=== PATIENT | female | born 1995 ===

== ENCOUNTER 2025-04-13 08:28 | Outpatient (AMB) | payer MEDICAID, SELFPAY ==
--- NOTE | 2025-04-13 08:32 | OBCLNT_ITS ---
Vital Signs 04/13/25 08:42 Height 1.57 m Height Method Stated Weight 87.713 kg Weight Measurement Method Standing Scale BMI 35.4 BP 112/73 Blood Pressure Source Automatic Cuff Blood Pressure Location Right Upper Arm Position Sitting Respiration 17 Pulse 88 Pulse Source Monitor Temp 97.6 F Temp Source Temporal Artery Scan Pulse Oximetry (%) 98 Oxygen Delivery Method Room Air Allergies/Home Meds Allergies & Medications Allergies No Known Allergies Allergy (Verified 04/13/25 08:44) Medication Reconciliation prenat.vits,purvi,[id number] ( Vitamin tablet) 1 tab PO DAILY 08/29/17 [History Confirmed 04/13/25] Intake Visit Data Collection New Patient or Established: New Patient (never been to [facility]) Reason for Visit:: OBI Seen by Clinical Staff ONLY (RN/MA): No Technology Director Required: No Do You Feel Safe at Home: Yes Authorities Contacted: N/A PCP or OBGYN visit in last 3 months: No Hx Now: Yes Are you currently on any form of Control: No Last menstrual period: 01/04/25 Pain Present Currently: Yes Pain Location: Abdomen Pain Scale Used: Celaya-Eid/Numerical Pain scale:: 3 Smoking Status Smoking Status: Never smoker Immunizations Flu Vaccine in the Last 12 Months: Yes Flu Vaccine Exclusion Criteria: Already Received Questionnaires Covid-19 Vaccine Questionnaire Has patient been vacinated for Covid-19 Have you been vacinated for Covid-19: Yes PHQ-9 PHQ-2 Over the last 2 weeks, how often have you been bothered by any of the following problems? 1. Little interest or pleasure in doing things: not at all 2. Feeling down, depressed, or hopeless: not at all Total score: 0 PHQ-9 3. Trouble falling or staying asleep, or sleeping too much: Not at all 4. Feeling tired or having little energy: Not at all 5. Poor appetite or overeating: Not at all 6. Feeling bad about yourself - or that you are a failure or have let yourself or your family down: Not at all 7. Trouble concentrating on things, such as reading the newspaper or watching television: Not at all 8. Moving or speaking so slowly that other people could have noticed? - Or the opposite - being so fidgety or restless that you have been moving around a lot more than usual: not at all 9. Thoughts that you would be better off or of hurting yourself in some way: Not at all Total score: 0 If you checked off any problems, how difficult have these problems made it for you to do your work, take care of things at home, or get along with other people?: not difficult at all Source: Developed by Drs. Dilan Cruz, Martina Moreland, Dung Kate and colleagues, with an educational sylvia from [employer]. Depression screen completed yes Social History Living Situation History Marital Status: Single Lives With: Family Housing: Apartment Tobacco History Smoking Status: Never smoker Second Hand Smoke Exposure: No Alcohol History Alcohol Intake: Never Domestic Abuse History Do You Feel Safe at Home: Yes History of Present Illness HPI Narrative Chief Complaint First visit for John Aparicio is a female presenting for her first visit for her third . Her last menstrual period was January 08 with a calculated due date of September 25, 2025. She has a history of one vaginal delivery followed by one section due to prolonged rupture of membranes for over 24 hours and failure to progress beyond 3 centimeters despite induction attempts, which resulted in an emergency section performed by Dr. Muhammad. The patient had verification done at [facility] where she saw Al as her provider. She initially had suspicion of but was not certain until the test came back positive. She experienced some spotting after the initial visit, prompting an ultrasound at [facility]. Two HCG levels were drawn a few days apart and showed normal rising patterns, and she was reassured that the spotting was normal. She has had one ultrasound at [facility] that confirmed dates were appropriate. The patient is currently taking vitamins and reports no other medical issues. She expressed feeling safer seeking care due to her previous section experience and wanted more experienced care for this . She is currently employed and was on her way to work at the time of this visit. Surgical History: - section for second due to prolonged rupture of membranes (o delmar 24 hours) and failure to progress beyond 3 cm dilation despite induction attempts, performed by Dr. Rivera as emergency procedure Obstetric History: - GTPAL: G3 T1 L2 - Current : Last menstrual period January 08, 2025, estimated due date October 16, 2025 - Second : Delivered via emergency section due to prolonged rupture of membranes (over 24 hours) and failure to progress beyond 3 cm despite induction attempts - First : Delivered via spontaneous vaginal delivery Medications: - vitamins (gummy form) Social History: - Works at [employer]: Past Medical History Past Medical History: No Hx Neurological Disorders, No Hx Breast Cancer, No Hx Cardiac Disorders, No Hx Blood Disorders, No Hx Gastrointestinal Disorders, No Hx Renal Disease, No Hx Diabetes Mellitus Type 1 and No Hx Diabetes Mellitus Type 2 OB Initial Visit OB Flowsheet OB Flowsheet Initial Weight: Not Recorded Date -?-?-?-?-?-?-?-?-?-?-?-?- EGA Weight BP Alb Glu CTX Pres Fundal ht FHR Mov Dilation Station Effacement Hx Notes Visit Note 04/13/25 -?-?-?-?-?-?-?-?-?-?-?-?- 13w 4d 87.713 kg 112/73 - John Aparicio is here for her first visit for her third . - Her last menstrual period was December h with a calculated due date of September 25, 2025. - She had verification done at [facility] where she also had an initial ultrasound that matched her dates. - She experienced some spotting after th e test but was told this was normal after having two HCG levels drawn a few days apart that were rising appropriately. - She is currently taking vitam ins (gummy form). - She has had two previous pregnancies: - First delivery was vaginal - Second delivery was section due to prolonged rupture of membranes for over 24 hours and failure to progress past 3 cm despite induction attempts - She denies any other medical issues. - She has not had any labs draw n yet for this . - She switched providers from her previo us clinic nurse (Dr. Muhammad) to seek more experienced care given her previous complicated section. - Order initial panel blood work - Order genetic testing (NIPD) - Schedule anatomy scan ultrasound at 18 -20 weeks with specialist in [place] - Consider option after anatomy ult rasound results, with potential referral to [facility] in [place] - Follow up for routine care Menstrual History Menstrual reliability: approximate (month known) Flow: normal Menstrual regularity: regular Monthly: Yes Age at menarche: 14 On control pills at conception: No OB History : 4 Para: 2 Hx Total # of Abortions (Spontaneous & Elective): 1 # of Living Children: 2 Delivery History 1st : Child's name: AXEL GRANT date: 08/30/17 sex: female Gestational age at delivery (weeks): 40 Delivery type: vaginal weight (lbs): 2721.554 g History of depression before or after : No 2nd : Child's name: YOANA GRANT JR date: 01/21/23 sex: male Gestational age at delivery (weeks): 40 Delivery type: weight (lbs): 3175.147 g History of depression before or after : No Infection History & Risk Evaluation History of STDs: chlamydia Patient or partner has history of Genital Herpes: No Varicella/chicken pox status: unknown Genetic Screening & History Genetic Screening/Teratology Counseling - Includes patient, baby's father, or anyone in either family with: 1. Patient's age 35 years or older as of estimated date of delivery: No 2. Thalassemia (Bengali, Cape Verdean, Mediterranean, or Background); MCV less than 80: No 3. Neural Tube Defect (Meningomyelocele, Spina Bifida, or Anencephaly): No 4. Congenital Heart Defect: No 5. Down Syndrome: Yes 6. Fransisco-Sachs (Ashkenazi Shinto, Cajun, Turkish [place]): No 7. Jarred Disease (Ashkenazi Shinto): No 8. Familial Dysautonomia (Ashkenazi Shinto): No 9. Sickle Cell Disease or Trait (): No 10. Hemophilia or other blood disorders: No 11. Muscular Dystrophy: No 12. Cystic Fibrosis: No 13. Hall's Chorea: No 14. Mental Retardation/Autism: Yes 15. Other inherited genetic or chromosomal disorder: No 16. Maternal Metabolic Disorder (EG,TYPE 1 Diabetes, PKU): No 17. Patient or baby's father had a child with defects not listed above: No 18. Recurrent loss or a stillbirth: No 19. Medications (including supplements, vitamins, herbs or otc drugs)/illicit/recreational drugs/alcohol since last menstrual period: No 20. Any other: No Infection History 1. Live with someone with TB or exposed to TB: No Other (see comments) Source: [employer] Exam General General Appearance: alert, in no apparent distress and healthy appearing Head Head exam: atraumatic Neck Neck exam: Present normal inspection and trachea midline Chest Chest inspection: Present normal inspection and symmetric chest wall rise External exam: Present normal external exam; Absent tenderness Neuro Neurological exam: Present oriented X3 Psych Psychiatric exam: Present normal affect and normal mood Office Procedures OBC Clinic LOC & Office Proc's Nursing/Assessment Patient Status: Initial/New Patient OB Clinic Nursing Assessment: Medication Reconciliation, Update PMH in EMR and Vital Signs OB Clinic Coordination of Care: Complex Care and Chronic Disease 1-5, Education Complex Pt/Fam, Consent,records obtained, informed consent, Lab and Imaging orders and Staff clarify orders Special Needs: Heart tones New Patient Charge New Patient Point Assignment: [id number] New Patient Point 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 Previous obstetric history significant for first vaginal delivery and second section due to prolonged rupture of membranes over 24 hours with failed induction. Patient had positive test and serial HCGs that daryl appropriately. Initial ultrasound at [facility] confirmed dates. Current ultrasound shows heart rate of 134 bpm with normal appearance of fetus and placenta. Patient experienced some spotting which was determined to be normal. Plan: - Order initial laboratory panel - Order genetic testing (NIPT) - Schedule anatomy ultrasound at 18-20 weeks with specialist in [place] - Anatomy scan will include evaluation of placenta given history of section and increased risk of placenta previa - Continue vitamins (gummy formulation) - Consider option after anatomy ultrasound results, with delivery at [facility] in [place] if appropriate - Obtain records from [facility]
[2025-04-13 08:42] VITALS: BP 112/73; PULSE 88; RESP 17; TEMP 36.4; O2SAT 98; BMI 35.4
== END 2025-04-13 09:47 | disposition home or self-care (01) ==
PROVIDERS: Supervising Provider Obstetrics & Gynecology; Visit Provider Obstetrics & Gynecology
DX: O09.291 Supervision of pregnancy with other poor reproductive or obstetric history, first trimester (principal); O34.211 Maternal care for low transverse scar from previous cesarean delivery; Z3A.13 13 weeks gestation of pregnancy
CPT/HCPCS: 99204; G0463

== ENCOUNTER 2025-05-25 08:29 | Outpatient (AMB) | payer MEDICAID, SELFPAY ==
[2025-05-25 08:35] VITALS: BP 116/78; PULSE 100; RESP 18; TEMP 36.6; O2SAT 98; BMI 36.3
--- NOTE | 2025-05-25 08:35 | OBCLNT_ITS ---
Vital Signs 05/25/25 08:35 Height 1.57 m Height Method Stated Weight 89.528 kg Weight Measurement Method Standing Scale BMI 36.3 BP 116/78 Blood Pressure Source Automatic Cuff Blood Pressure Location Left Upper Arm Position Sitting Respiration 18 Pulse 100 Pulse Source Monitor Temp 97.8 F Temp Source Oral Pulse Oximetry (%) 98 Oxygen Delivery Method Room Air Allergies/Home Meds Allergies & Medications Allergies No Known Allergies Allergy (Verified 05/25/25 08:35) Medication Reconciliation prenat.vits,purvi,[id number] ( Vitamin tablet) 1 tab PO DAILY 08/29/17 [History Confirmed 05/25/25] sumatriptan succinate 50 mg tablet (Imitrex) 50 mg PO .COMPLEX 30 days #30 tabs 05/25/25 [Rx] Immunizations Immunizations Flu Vaccine in the Last 12 Months: Yes Flu Vaccine Exclusion Criteria: Already Received Care OB Visit Log OB Flowsheet Initial Weight: Not Recorded Date -?-?-?-?-?-?-?-?-?-?-?-?- EGA Weight BP Alb Glu CTX Pres Fundal ht FHR Mov Dilation Station Effacement Hx Notes Visit Note 04/13/25 -?-?-?-?-?-?-?-?-?-?-?-?- 13w 4d 87.713 kg 112/73 - John Aparicio is here for her first visit for her third . - Her last menstrual period was January 08t h with a calculated due date of September 25, 2025. - She had verification done at [facility] where she also had an initial ultrasound that matched her dates. - She experienced some spotting after th e test but was told this was normal after having two HCG levels drawn a few days apart that were rising appropriately. - She is currently taking vitam ins (gummy form). - She has had two previous pregnancies: - First delivery was vaginal - Second delivery was section due to prolonged rupture of membranes for over 24 hours and failure to progress past 3 cm despite induction attempts - She denies any other medical issues. - She has not had any labs draw n yet for this . - She switched providers from her previo us clipper automatic (Dr. Muhammad) to seek more experienced care given her previous complicated section. - Order initial panel blood work - Order genetic testing (NIPD) - Schedule anatomy scan ultrasound at 18 -20 weeks with specialist in [place] - Consider option after anatomy ult rasound results, with potential referral to [facility] in [place] - Follow up for routine care 05/25/25 -?-?-?-?-?-?-?-?-?-?-?-?- 19w 4d 89.528 kg 116/78 absent unstable 155 - She reports experiencing sharp pain in the lower abdomen that occurs with certain movements or rotational activities. - Pain is described as really short and localized to the lower abdominal area. - Patient has been experiencing dizzines s and lightheadedness. - She reports having migraines during pr egnancy. - Patient experiences back pain. - She has a history of frequent urinary tract infections, both during and prior to . - Denies current urinary symptoms such as burning or increased frequency. - Patient called approximately 2 weeks a go regarding scheduling her anatomy scan ultrasound, which was not properly scheduled. - She denies fever or chills. - Patient denies normally getting migraines when not . - Order CBC, CMP, and urine culture to evaluate dizziness and rule out early-onset preeclampsia - Prescribe Imitrex for migraines - take one dose, if no relief after one hour take second dose - Schedule urgent anatomy scan ultrasoun d at 19 weeks 4 days gestation - Complete [place] paperwork for intermitte nt leave (once per week, up to 3-4 hours per episode) - Patient can present to labor and krista malone for evaluation once 20 weeks gestation is reached CELESTE Calculator Estimated Delivery Date Method Current WG Current Estimate 10/15/25 LMP (Certain) 23w 3d Notes Visit Date: 04/13/25 Last Updated by: Adriel Tripp MD - test: Positive - Serial HCG levels: Rising appropriately (performed a few days apart) - Obstetric ultrasound: heart rate 134 bpm (normal), placenta appears normal, anatomy visualized including head and legs, overall normal appearance - Previous ultrasound at [facility]: Dates consistent with last menstrual period Office Procedures OBC Clinic LOC & Office Proc's Nursing/Assessment Patient Status: Established Patient OB Clinic Nursing Assessment: Medication Reconciliation, Update PMH in EMR and Vital Signs OB Clinic Coordination of Care: Complex Care and Chronic Disease 1-5, Consent,records obtained, informed consent, Education Simp Pt/Fam, 1 Ins Authorization, Lab and Imaging orders, Results/Orders obtained and Staff clarify orders Special Needs: Heart tones Established Patient Charge Established Patient Point Assignment: 150 Established Patient Point Charge: EP Level 4 (120-155) Assessment & Plan Diagnosis / Problem List (1) Migraines: Status: Acute (2) Supervision of high risk , unspecified, first trimester: Status: Acute (3) Maternal care for low transverse scar from previous delivery: Status: Acute Plan Problem List - Round ligament pain - Migraines - Dizziness - Recurrent urinary tract infections - Back pain Assessment 19-week 4-day patient presenting with round ligament pain characterized by sharp pain with rotational movements, which is consistent with normal -related ligament stretching. Patient reports dizziness and migraines, raising concern for possible early-onset preeclampsia that requires laboratory evaluation including CBC, CMP, and urine culture to assess liver, kidney, and electrolyte function. Patient has a history of frequent urinary tract infections both during and prior, with back pain symptoms, though no current UTI symptoms such as burning or frequency are reported. Plan - Order CBC, CMP, and urine culture to evaluate dizziness and rule out early- onset preeclampsia - Prescribe Imitrex for migraines - take one dose, if no relief after one hour take second dose - Schedule urgent anatomy scan ultrasound at 19 weeks 4 days gestation - Complete [facility] paperwork for intermittent leave (once per week, up to 3-4 hours per episode) - Patient can present to labor and delivery for evaluation once 20 weeks gestation is reached
== END 2025-05-25 09:59 | disposition home or self-care (01) ==
PROVIDERS: Supervising Provider Obstetrics & Gynecology; Visit Provider Obstetrics & Gynecology
DX: O09.292 Supervision of pregnancy with other poor reproductive or obstetric history, second trimester (principal); O34.211 Maternal care for low transverse scar from previous cesarean delivery; O09.892 Supervision of other high risk pregnancies, second trimester; O99.352 Diseases of the nervous system complicating pregnancy, second trimester; G43.909 Migraine, unspecified, not intractable, without status migrainosus; R10.20 Pelvic and perineal pain unspecified side; O99.891 Other specified diseases and conditions complicating pregnancy; Z3A.19 19 weeks gestation of pregnancy; Z87.440 Personal history of urinary (tract) infections
CPT/HCPCS: 99214; G0463

== ENCOUNTER 2025-06-22 15:04 | Outpatient (AMB) | payer MEDICAID, SELFPAY ==
[2025-06-22 15:07] VITALS: BP 126/77; PULSE 97; RESP 18; TEMP 36.4; O2SAT 98; BMI 36.2
--- NOTE | 2025-06-22 15:07 | OBCLNT_ITS ---
Vital Signs 06/22/25 15:07 Height 1.57 m Height Method Stated Weight 89.358 kg Weight Measurement Method Standing Scale BMI 36.2 BP 126/77 Blood Pressure Source Automatic Cuff Blood Pressure Location Left Upper Arm Position Sitting Respiration 18 Pulse 97 Pulse Source Monitor Temp 97.5 F Temp Source Oral Pulse Oximetry (%) 98 Oxygen Delivery Method Room Air Allergies/Home Meds Allergies & Medications Allergies No Known Allergies Allergy (Verified 06/22/25 15:11) Medication Reconciliation prenat.vits,purvi,[id number] ( Vitamin tablet) 1 tab PO DAILY 08/29/17 [History Confirmed 06/22/25] sumatriptan succinate 50 mg tablet (Imitrex) 50 mg PO .COMPLEX 30 days #30 tabs 05/25/25 [Rx Confirmed 06/22/25] Immunizations Immunizations Flu Vaccine in the Last 12 Months: No Flu Vaccine Exclusion Criteria: Refused by Patient Care OB Visit Log OB Flowsheet Initial Weight: Not Recorded Date -?-?-?-?-?-?-?-?-?-?-?-?- EGA Weight BP Alb Glu CTX Pres Fundal ht FHR Mov Dilation Station Ef facement Hx Notes Visit Note 04/13/25 -?-?-?-?-?-?-?-?-?-?-?-?- 13w 4d 87.713 kg 112/73 - John Aparicio is here for her first visit for her third . - Her last menstrual period was January 08t h with a calculated due date of September 25, 2025. - She had verification done at [facility] where she also had an initial ultrasound that matched her dates. - She experienced some spotting after th e test but was told this was normal after having two HCG levels drawn a few days apart that were rising appropriately. - She is currently taking vitam ins (gummy form). - She has had two previous pregnancies: - First delivery was vaginal - Second delivery was section due to prolonged rupture of membranes for over 24 hours and failure to progress past 3 cm despite induction attempts - She denies any other medical issues. - She has not had any labs draw n yet for this . - She switched providers from her previo us [facility] [employer] [facility] (Dr. Muhammad) to seek more experienced care given her previous complicated section. - Order initial panel blood work - Order genetic testing (NIPD) - Schedule anatomy scan ultrasound at 18 -20 weeks with specialist in [place] - Consider option after anatomy ult rasound results, with potential referral to [facility] in [place] - Follow up for routine care 05/25/25 -?-?-?-?-?-?-?-?-?-?-?-?- 19w 4d 89.528 kg 116/78 absent unstable 155 - She reports experiencing sharp pain in the lower abdomen that occurs with certain movements or rotational activities. - Pain is described as really short and localized to the lower abdominal area. - Patient has been experiencing dizzines s and lightheadedness. - She reports having migraines during pr egnancy. - Patient experiences back pain. - She has a history of frequent urinary tract infections, both during and prior to . - Denies current urinary symptoms such as burning or increased frequency. - Patient called approximately 2 weeks a go regarding scheduling her anatomy scan ultrasound, which was not properly scheduled. - She denies fever or chills. - Patient denies normally getting migraines when not . - Order CBC, CMP, and urine culture to evaluate dizziness and rule out early-onset preeclampsia - Prescribe Imitrex for migraines - take one dose, if no relief after one hour take second dose - Schedule urgent anatomy scan ultrasoun d at 19 weeks 4 days gestation - Complete [facility] paperwork for intermitte nt leave (once per week, up to 3-4 hours per episode) - Patient can present to jimbo and krista malone for evaluation once 20 weeks gestation is reached 06/22/25 -?-?-?-?-?-?-?-?-?-?-?-?- 23w 4d 89.358 kg 126/77 absent unknown 145 active - She reports the baby is active and moving all the time. - She denies contractions or problems. - She has not yet had her scheduled ultr asound in [place] due to a waiting list, with the facility indicating they will call her in about 1-2 weeks to schedule. - She denies history of diabetes. - Glucose tolerance test (1-hour) to be completed within the next month on empty stomach - Ultrasound appointment pending - patie nt on waiting list, expected to be scheduled within 1-2 weeks - Follow-up appointment scheduled for Immanuel ramirez at 3 PM (4 weeks) - Call if any concerns arise CELESTE Calculator Estimated Delivery Date Method Current WG Current Estimate 10/15/25 LMP (Certain) 23w 4d Notes Visit Date: 06/22/25 Last Updated by: Adriel Tripp MD - Date: June 01, 2025 - CBC: Hemoglobin 12.3 g/dL, Platelets normal - Glucose: 75 mg/dL - Electrolytes: Normal - Liver enzymes: Normal - Urine culture: Negative Visit Date: 04/13/25 Last Updated by: Adriel Tripp MD - test: Positive - Serial HCG levels: Rising appropriately (performed a few days apart) - Obstetric ultrasound: heart rate 134 bpm (normal), placenta appears normal, anatomy visualized including head and legs, overall normal appearance - Previous ultrasound at [facility]: Dates consistent with last menstrual period Office Procedures [facility] LOC & Office Proc's Nursing/Assessment Patient Status: Established Patient OB Clinic Nursing Assessment: Medication Reconciliation, Update PMH in EMR and Vital Signs OB Clinic Coordination of Care: Complex Care and Chronic Disease 1-5, Consent,records obtained, informed consent, Education Simp Pt/Fam, 1 Ins Authorization, Lab and Imaging orders, Results/Orders obtained and Staff clarify orders Special Needs: Heart tones Established Patient Charge Established Patient Point Assignment: 150 Established Patient Point Charge: EP Level 4 (120-155) Assessment & Plan Diagnosis / Problem List (1) Maternal care for low transverse scar from previous delivery: Status: Acute Plan Problem List - at 23 weeks and 4 days - Recurrent urinary tract infections - Migraines during - Prior section Assessment 23-week 4-day 2 para 2 with normal heart rate of 147 bpm and active movement. Patient reports no contractions or concerning symptoms. Recent laboratory results from June 01 show hemoglobin 12.3 g/dL, normal platelets, glucose 75 mg/dL, normal electrolytes and liver enzymes with no signs of preeclampsia, and negative urine culture. Patient has history of recurrent UTIs, -related migraines, and prior section. Awaiting scheduled anatomy ultrasound due to facility scheduling delays. Plan - Glucose tolerance test (1-hour) to be completed within the next month on empty stomach - Ultrasound appointment pending - patient on waiting list, expected to be scheduled within 1-2 weeks - Follow-up appointment scheduled for (4 weeks) - Call if any concerns arise 1. Progress Reviewed gestational age (23 weeks 4 days), growth, and heart rate (147 bpm - normal). Planned frequent visits (every 4 weeks currently). 2. Instructed patient to monitor movements and report decreases immediately. 3. Testing Counseled on routine third-trimester labs per guidelines (glucose tolerance test ordered). Discussed potential need for ultrasound or monitoring based on risk factors (ultrasound pending with specialist). 4. Preeclampsia Precaution Educated on preeclampsia signs: severe headache, vision changes, right upper quadrant pain, sudden swelling. Advised urgent reporting of symptoms and discussed blood pressure monitoring if high risk. 5. Labor Precautions Reviewed labor signs: regular contractions, pelvic pressure, back pain, bleeding, or fluid leakage. Instructed to seek immediate care for these symptoms. 6. Lifestyle and Delivery Preparation Reinforced vitamins, nutrition, and safe activity. Discussed plan, pain management, and . Advised on labor preparation (e.g., hospital bag) and expectations. 7. Psychosocial Support Assessed emotional well-being and offered resources for mental health or parenting support.
== END 2025-06-22 15:19 | disposition home or self-care (01) ==
LOC: HODSOBC 15:04
PROVIDERS: Supervising Provider Obstetrics & Gynecology; Visit Provider Obstetrics & Gynecology
DX: O09.293 Supervision of pregnancy with other poor reproductive or obstetric history, third trimester (principal); O34.211 Maternal care for low transverse scar from previous cesarean delivery; O09.893 Supervision of other high risk pregnancies, third trimester; G43.909 Migraine, unspecified, not intractable, without status migrainosus; O99.352 Diseases of the nervous system complicating pregnancy, second trimester; Z3A.29 29 weeks gestation of pregnancy; Z87.440 Personal history of urinary (tract) infections; Z28.21 Immunization not carried out because of patient refusal
CPT/HCPCS: 99214; G0463